=== PATIENT | female | born 1980 | race Caucasian/White ===

== ENCOUNTER → 2016-04-29 | Outpatient (CLI) | payer BC ==
--- NOTE | 2016-04-30 08:07 | WOMENS IMAGING REPORT ---
EXAM DESCRIPTION: BILAT SCREENING MAMMO W/CAD COMPLETED DATE/TIME: 04/29/2016 3:46 pm REASON FOR STUDY: Z12.31 ROUTINE SCREENING MAMMO Z12.31 ENCNTR SCREEN MAMMOGRAM FOR MALIGNANT NEOPL ASM OF [place] COMPARISON: None. TECHNIQUE: Standard craniocaudal and mediolateral oblique views of each breast recorded using Gabstra l acquisition. LIMITATIONS: None. FINDINGS: Findings present which are benign by mammographic criteria. No suspicious masses, calcifi cations or architectural distortion. Benign moved bar upper outer quadrant intramammary lymph node. Benign left breast skin calcifications. Read with the assistance of CAD. .[facility] - R2 Cenova Version 1.3 .[facility] Imaging - R2 Cenova Version 1.3 .[facility] - R2 Cenova Version 2.4 .[place] - R2 Cenova Version 2.4 .[facility] - R2 Hydraulic Dredge Operator Version 9.2 Benign mammographic findings may include one or more of the following: Smooth masses, popcorn/rim/co arse calcifications, asymmetries, post-procedure changes, and lesions with long-standing stability. BREAST DENSITY: a. The breasts are almost entirely fatty. BIRAD: 2 BENIGN FINDING(S) RECOMMENDATION: ROUTINE SCREENING COMMENT: PATIENT NOTIFIED BY LETTER. The [employer] recommends an annual screening mammogram for women aged 40 years or over. Each patient will receive a reminder prior to the anniversary date of her mammogram. The [employer] ([employer]) has developed recommendations for screening MRI of the breast s in certain patient populations, to be used in conjunction with mammography. Breast MRI surveillanc e may be appropriate for women with more than 20% lifetime risk of developing breast cancer as deter mined by genetic testing, significant family history of the disease, or history of mantle radiation f or Hodgkins Disease. [employer] Practice Guidelines 2008. TECHNICAL DOCUMENTATION: FINDING NUMBER: (1) ASSESSMENT: (1) JOB ID: [id number] [employer] All Rights Reserved
== END ==
LOC: WI 15:16
PROVIDERS: ATTEND Family Medicine
DX: Z12.31 Encounter for screening mammogram for malignant neoplasm of breast (principal)
CPT/HCPCS: 77067; G0202

== ENCOUNTER 2019-02-05 17:15 | Emergency (ER) | payer OTHER, BC ==
[2019-02-05] MEDS ORDERED: CYCLOBENZAPRINE HCL 10 MG TABLET PO ONE (19:33)
[2019-02-05] MEDS ORDERED: HYDROCODONE/ACETAMINOPHEN 5-325 MG TABLET PO ONE (19:33)
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
--- NOTE | 2019-02-05 20:19 | RADIOLOGY REPORT (SQ) ---
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 COMPARISON: None. FINDINGS: No acute compression fracture is seen. There is normal alignment without subluxation. The disc spaces are preserved. IMPRESSION: No acute compression fracture of the thoracic spine is seen. However, please note that if there is point tenderness or high clinical concern, a CT scan is recommended.
[2019-02-05 20:31] VITALS: BP 137/64
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
== END 2019-02-05 20:31 | disposition home or self-care (01) ==
LOC: ER 17:15
DX: S39.012A Strain of muscle, fascia and tendon of lower back, initial encounter (principal); S29.019A Strain of muscle and tendon of unspecified wall of thorax, initial encounter; V89.2XXA Person injured in unspecified motor-vehicle accident, traffic, initial encounter; I10 Essential (primary) hypertension
CPT/HCPCS: 72070; 72110; 99283